=== PATIENT | male | born 1960 | race Caucasian/White ===

== ENCOUNTER 2017-09-10 19:32 | Emergency (ER) | payer MEDICAID, OTHER ==
[~2017-09-10] VITALS: Ht 170.2 cm; Wt 118.2 kg
[~2017-09-10 19:32] MED LIST: AMLO-512 PO; ASPI-891 PO; CLOP75 PO; GLYB5 PO; LISI-661 PO; METF500T7 PO; SIMV-260 PO
[2017-09-10 19:42] LABS: GLUCOSE,POINT OF CARE 139 MG/DL (70-110)
[2017-09-10] MEDS ORDERED: LOSA50TA37 PO (19:44)
[2017-09-10] MEDS ORDERED: FURO40 PO (19:44)
[2017-09-10] MEDS ORDERED: GABA-531 PO (19:44)
[2017-09-10] MEDS ORDERED: METO-296 PO (19:44)
[2017-09-10] MEDS ORDERED: ATOR20TA86 PO (19:44)
[2017-09-10] MEDS ORDERED: GLIM2 PO (19:44)
[2017-09-10] MEDS ORDERED: CARV3 PO (19:44)
[2017-09-10] MEDS ORDERED: FAMO20 PO (19:44)
[2017-09-10] MEDS ORDERED: LIRA0.6P SQ (19:51)
[2017-09-10] MEDS ORDERED: LIDOCAINE HCL 1% 10 ML VIAL INJ ONE (21:00)
[2017-09-10] MEDS ORDERED: PERTUSS(ACELL),DIPH,TET VAC/PF 0.5 ML VIAL IM ONE (21:00)
[2017-09-10] MEDS ORDERED: BACITRACIN 0.9 GM PACKET OINTMENT TP ONE (21:30)
[2017-09-10] MEDS ORDERED: LIDOCAINE HCL/PF 1% 2 ML VIAL IM ONE (21:30)
[2017-09-10] MEDS ORDERED: CefTRIAXone SODIUM 1 GM/VIAL IM ONE (21:30)
[2017-09-10 21:49] VITALS: BP 132/88
== END 2017-09-10 22:19 | disposition home or self-care (01) ==
LOC: EMS 19:33
DX: S81.812A Laceration without foreign body, left lower leg, initial encounter (principal); S80.12XA Contusion of left lower leg, initial encounter; E11.9 Type 2 diabetes mellitus without complications; E78.00 Pure hypercholesterolemia, unspecified; I10 Essential (primary) hypertension; Z79.82 Long term (current) use of aspirin; Z79.84 Long term (current) use of oral hypoglycemic drugs; Z86.73 Personal history of transient ischemic attack (TIA), and cerebral infarction without residual deficits; W18.09XA Striking against other object with subsequent fall, initial encounter; Y93.89 Activity, other specified; Y92.89 Other specified places as the place of occurrence of the external cause; Y99.8 Other external cause status
CPT/HCPCS: 12002; 73590; 82962; 90471; 90715; 96372; 99284; J0696; J3490 ×2

== ENCOUNTER 2018-02-01 03:07 | Emergency (ER) | payer MEDICARE, OTHER ==
[~2018-02-01] VITALS: Ht 162.6 cm; Wt 113.6 kg
[~2018-02-01 03:07] MED LIST changes: -AMLO-512 PO; +ATOR20TA86 PO; +CARV3 PO; -CLOP75 PO; +FAMO20 PO; +FURO40 PO; +GABA-531 PO; +GLIM2 PO; -GLYB5 PO; +LIRA0.6P SQ; -LISI-661 PO; +LOSA50TA25 PO; -METF500T7 PO; +METO-296 PO; -SIMV-260 PO
[2018-02-01 03:19] LABS: GLUCOSE,POINT OF CARE 106 MG/DL (70-110)
[2018-02-01] MEDS ORDERED: GLIM2 PO (03:23)
[2018-02-01 04:27] VITALS: BP 168/92
== END 2018-02-01 04:29 | disposition home or self-care (01) ==
LOC: EMS 03:09
DX: K59.00 Constipation, unspecified (principal); I10 Essential (primary) hypertension; E11.9 Type 2 diabetes mellitus without complications; E78.00 Pure hypercholesterolemia, unspecified; Z79.82 Long term (current) use of aspirin
CPT/HCPCS: 99282

== ENCOUNTER 2020-04-09 17:26 | Emergency (ER) | payer MEDICARE, OTHER ==
[~2020-04-09] VITALS: Ht 162.6 cm; Wt 113.6 kg
[~2020-04-09 17:26] MED LIST changes: +ASPI-1149 PO; -ASPI-891 PO; -FAMO20 PO; +GABA-1181 PO; -GABA-531 PO; -LOSA50TA25 PO; +LOSA50TA37 PO; -METO-296 PO
[2020-04-09 19:14] LABS: GLUCOSE,POINT OF CARE 159 MG/DL (70-110)
[2020-04-09 20:07] LABS: BASOPHILS % (AUTO) 0.6 % (0.0-2.0); EOSINOPHILS % (AUTO) 2.5 % (1.0-6.0); HEMATOCRIT 34.1 % (41-53); HEMOGLOBIN 11.3 g/dL (13.5-17.5); LYMPHOCYTES # (AUTO) 1.4 K/uL (1.0-4.8); LYMPHOCYTES % (AUTO) 18.1 % (22.0-44.0); MEAN CORPUSCULAR HEMOGLOBIN 28.6 pg (26.0-34.0); MEAN CORPUSCULAR HGB CONC 33.1 G/dL (31.0-37.0); MEAN CORPUSCULAR VOLUME 87 fL (80-100); MONOCYTES # (AUTO) 0.6 K/uL (0.1-1.0); MONOCYTES % (AUTO) 8.1 % (2.0-9.0); NEUTROPHILS # (AUTO) 5.5 K/uL (1.8-7.7); NEUTROPHILS % (AUTO) 70.7 % (40.0-70.0); PLATELET COUNT (AUTO) 170 K/uL (150-450); RED BLOOD CELL COUNT(AUTO) 3.93 MIL/uL (4.50-5.90); RED CELL DISTRIBUTION WIDTH 14.4 % (11.5-14.5)
[2020-04-09 20:16] LABS: CALCIUM, TOTAL 9.3 mg/dL (8.8-10.5); CREATININE 2.27 mg/dL (0.60-1.30); POTASSIUM 4.4 mmol/L (3.5-5.1)
[2020-04-09 20:21] LABS: PROTHROMBIN TIME 10.9 SEC (9.4-11.6)
[2020-04-09 20:41] LABS: ALBUMIN 3.6 g/dL (3.4-5.0); BILIRUBIN,TOTAL 0.3 mg/dL (0.1-1.0); TOTAL PROTEIN, SERUM 8.1 g/dL (6.4-8.2)
[2020-04-09 20:45] VITALS: BP 131/83
== END 2020-04-09 21:01 | disposition home or self-care (01) ==
LOC: EMS 17:26
DX: S80.812A Abrasion, left lower leg, initial encounter (principal); I10 Essential (primary) hypertension; E11.9 Type 2 diabetes mellitus without complications; X58.XXXA Exposure to other specified factors, initial encounter; Y93.89 Activity, other specified; Y92.89 Other specified places as the place of occurrence of the external cause; Y99.8 Other external cause status
CPT/HCPCS: 93005; 36415-L1; 36415-TC; 71045-TC